=== PATIENT | female | born 1990 | race Caucasian/White ===

== ENCOUNTER 2022-10-29 09:30 | Day surgery (SDC) | payer MEDICAID ==
[2022-10-29] MEDS ORDERED: ONDANSETRON 4 MG/2 ML VIAL ONE (11:23)
[2022-10-29] MEDS ORDERED: KETOROLAC 30 MG/ML VIAL ONE (11:23)
[2022-10-29] MEDS ORDERED: DEXAMETHASONE 4 MG/ML VIAL ONE (11:23)
[2022-10-29] MEDS ORDERED: PROPOFOL 200 MG/20 ML VIAL IV ONE (11:23)
[2022-10-29] MEDS ORDERED: DESFLURANE 240 ML BTL INH ONE (11:50)
[2022-10-29] MEDS ORDERED: fentaNYL citrate 0.05 MG/ML VIAL ONE (12:00)
== END 2022-10-29 13:21 | disposition home or self-care (01) ==
LOC: MDS 09:30 → MMU 09:31 → MDS 13:21
PROVIDERS: ATTEND Obstetrics & Gynecology
DX: T83.32XA Displacement of intrauterine contraceptive device, initial encounter (principal); Y83.8 Other surgical procedures as the cause of abnormal reaction of the patient, or of later complication, without mention of misadventure at the time of the procedure
CPT/HCPCS: 58562; J1100; J1885; J2405; J2704; J3010